=== PATIENT | female | born 1985 | race African-American/Black ===

== ENCOUNTER 2016-10-16 10:46 | Emergency (ER) | payer SELFPAY ==
[~2016-10-16] VITALS: Ht 170.2 cm; Wt 68.0 kg
[2016-10-16 12:15] VITALS: BP 123/62
== END 2016-10-16 13:15 | disposition left against medical advice (07) ==
LOC: ER 12:40
DX: T74.21XA Adult sexual abuse, confirmed, initial encounter (principal); Z87.440 Personal history of urinary (tract) infections
CPT/HCPCS: 99281; Z7610